=== PATIENT | male | born 1950 | race Caucasian/White ===

== ENCOUNTER → 2017-11-20 06:50 | Outpatient (CLI) | payer MEDICARE, OTHER, SELFPAY ==
--- NOTE | 2017-11-20 07:00 | RAD_ITS ---
STUDY: X-RAY - ORBITS REASON FOR EXAM: Male, 67 years old. This study is being performed as a clearance examination for exclusion of orbital metal, prior to the performance of an MRI examination. TECHNIQUE: 2 view(s) of the orbits were obtained. COMPARISON: None. FINDINGS: Normal bilateral orbits without a metallic orbital foreign body. Normal visualized facial bones. Normal paranasal sinuses. The soft tissue structures are unremarkable. RAD/Orbits for Foreign Body IMPRESSION: No demonstrated metallic orbital foreign body. The patient is cleared for an MRI examination. Electronically Signed: Karthik Donohue DO at 7:20 EDT Tel , Service support ,
--- NOTE | 2017-11-20 07:09 | MRI_ITS ---
STUDY: MRI RIGHT SHOULDER REASON FOR EXAM: Male, 67 years old. Right-sided shoulder pain after falling on ice in July 2017. TECHNIQUE: Standardized fat and water weighted pulse sequences were obtained in all 3 orthogonal planes. COMPARISON: Prior comparable comparison studies are not available for review at this time. FINDINGS: There is a full-thickness tear of the supraspinatus tendon and infraspinatus tendon. There is subscapularis tendinosis with tendon thickening, but without a demonstrated tendon tear. There is teres minor tendinosis with tendon attrition but without a demonstrated supraspinatus tendon tear. There is greater than a 50% fatty muscular atrophy of the supraspinatus muscle (Goutallier Stage IV). There is greater than a 50% fatty muscular atrophy of the infraspinatus muscle (Goutallier Stage IV). There is fatty infiltration (fatty streaks) of the subscapularis muscle (Goutallier Stage I). There is greater than a 50% fatty muscular atrophy of the teres minor muscle (Goutallier Stage IV). There is a small volume joint effusion of the glenohumeral joint. Normal humeral head and visualized proximal humerus. Appears to be disruption of the normal bicipital tendon relationship with the superior glenoid suggesting possible sequela of a type II SLAP lesion. Normal intracapsular long biceps tendon. The labrum otherwise has a grossly normal appearance. Normal capsulo- ligamentous complex. There is decreased acromiohumeral distance consistent with a chronic rotator cuff tear. 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 There is a Type II morphology (curved). There is minimal fluid distention of the subacromial bursa, consistent with mild subacromial-subdeltoid bursitis. Normal axillary space. Normal deltoid muscle. Normal trapezius muscle. MRI/Upper Ext Joint Only(Routine) IMPRESSION: 1. Sequela of supraspinatus and infraspinatus tendon tears with possible type II SLAP lesion. 2. Tendinopathy of subscapularis tendon. 3. Severe degenerative arthropathy of the acromioclavicular joint. 4. Moderately severe atrophy of the supraspinatus, infraspinatus and teres minor muscles. 5. Small joint effusion. Electronically Signed: Ashlee Jaimes MD at 9:33 EDT , Service support ,
== END ==
PROVIDERS: Family Provider Family Medicine; PCP Family Medicine; Visit Provider Family Medicine
DX: S49.91XS Unspecified injury of right shoulder and upper arm, sequela (principal)
CPT/HCPCS: 70030; 73221

== ENCOUNTER → 2017-12-07 07:33 | Outpatient (CLI) | payer MEDICARE, OTHER, SELFPAY ==
--- NOTE | 2017-12-07 07:54 | EKG12_ITS ---
Test Reason : PREOP Blood Pressure : / mmHG Vent. Rate : 068 BPM Atrial Rate : 068 BPM P-R Int : 172 ms QRS Dur : 136 ms QT Int : 454 ms P-R-T Axes : 084 -34 020 degrees QTc Int : 482 ms Normal sinus rhythm Left axis deviation Right bundle branch block Inferior infarct , age undetermined Abnormal ECG No previous ECGs available Confirmed by COLETTE LEDEZMA, JUSTIN ([id number]), video news editor KARTIK IRWIN ([id number]) on 12/09/2017 9:03:05 AM Referred By: Iraida Oconnor Confirmed By:JUSTIN ALVARENGA MD
[2017-12-07 08:32] LABS: Hematocrit 46.2 % (40-54); Hemoglobin 14.9 g/dl (13.0-16.5); Mean Corp Hgb Conc 32.3 g/gl (32-36); Mean Corpuscular Hgb 29.9 pg (27.0-32.0); Mean Corpuscular Volume 92.8 fL (80-94); Mean Platelet Vol. 12.4 fl (6.2-12.0); Platelet Count 178 K/mm3 (150-450); RBC Distribution Width SD 46.8 fl (35.1-43.9); Red Blood Count 4.98 M/mm3 (4.6-6.2); White Blood Count 6.6 K/mm3 (4.4-11.0)
[2017-12-07 08:40] LABS: Scan Indicated on CBC? Y/N NO
[2017-12-07 08:51] LABS: Anion Gap 7 (5-15); BUN 32 mg/dL (7-18); BUN/Creat Ratio 17.7 RATIO (10-20); Calcium,Total 9.1 mg/dL (8.5-10.1); Chloride 107 mmol/L (98-107); Creatinine, Serum 1.81 mg/dL (0.70-1.30); EST Glomerular Filtration Rate 40 mL/min (>60); Est Glom Filt Rate - Afr Amer 48 mL/min (>60); Glucose 251 mg/dL (74-106); Potassium 4.8 mmol/L (3.5-5.1); Sodium Level 137 mmol/L (136-145)
[2017-12-07 09:00] LABS: Hemoglobin A1c 9.6 % (4.2-6.3)
== END ==
PROVIDERS: Family Provider Family Medicine; PCP Family Medicine; Visit Provider Physician Assistant
DX: Z01.810 Encounter for preprocedural cardiovascular examination (principal); Z01.818 Encounter for other preprocedural examination; E11.9 Type 2 diabetes mellitus without complications; I10 Essential (primary) hypertension
CPT/HCPCS: 36415; 80048; 83036; 85027; 93005

== ENCOUNTER → 2018-07-17 10:25 | Outpatient (CLI) | payer MEDICARE, OTHER, SELFPAY ==
--- NOTE | 2018-07-17 10:32 | EKG12_ITS ---
Test Reason : PRE OP Blood Pressure : / mmHG Vent. Rate : 064 BPM Atrial Rate : 064 BPM P-R Int : 176 ms QRS Dur : 140 ms QT Int : 430 ms P-R-T Axes : 030 -44 036 degrees QTc Int : 443 ms Sinus rhythm with Fusion complexes Left axis deviation Right bundle branch block Inferior infarct , age undetermined Abnormal ECG Confirmed by COLETTE LEDEZMA, JUSTIN ([id number]), field map editor KARTIK IRWIN ([id number]) on 07/18/2018 1:17:10 PM Referred By: Jaquan Pate Confirmed By:JUSTIN ALVARENGA MD
[2018-07-17 11:16] LABS: Hemoglobin 16.2 g/dl (13.0-16.5); Mean Corp Hgb Conc 34.5 g/gl (32-36); Mean Corpuscular Hgb 31.3 pg (27.0-32.0); Mean Corpuscular Volume 90.9 fL (80-94); Mean Platelet Vol. 12.3 fl (6.2-12.0); Platelet Count 170 K/mm3 (150-450); RBC Distribution Width CV 14.4 % (11.6-14.6); RBC Distribution Width SD 46.5 fl (35.1-43.9); Red Blood Count 5.17 M/mm3 (4.6-6.2); White Blood Count 8.7 K/mm3 (4.4-11.0)
[2018-07-17 11:17] LABS: Scan Indicated on CBC? Y/N NO
[2018-07-17 11:48] LABS: Anion Gap 10 (5-15); BUN 21 mg/dL (7-18); BUN/Creat Ratio 15.4 RATIO (10-20); Calcium,Total 9.6 mg/dL (8.5-10.1); Chloride 102 mmol/L (98-107); Creatinine, Serum 1.36 mg/dL (0.70-1.30); EST Glomerular Filtration Rate 55 mL/min (>60); Est Glom Filt Rate - Afr Amer 67 mL/min (>60); Glucose 232 mg/dL (74-106); Hemoglobin A1c 8.5 % (4.2-6.3); Potassium 4.1 mmol/L (3.5-5.1); Sodium Level 138 mmol/L (136-145)
== END ==
PROVIDERS: Physician Assistant; Family Provider Family Medicine; PCP Family Medicine; Referring Provider Orthopaedic Surgery; Visit Provider Orthopaedic Surgery
DX: Z01.818 Encounter for other preprocedural examination (principal); Z01.810 Encounter for preprocedural cardiovascular examination; E11.9 Type 2 diabetes mellitus without complications
CPT/HCPCS: 36415; 80048; 83036; 85027; 93005

== ENCOUNTER 2020-10-04 10:15 | Outpatient (RCR) | payer MEDICARE, SELFPAY ==
[2020-10-04] MEDS: COVID-19 VACC, MRNA(PFIZER)/PF 30 MCG/0.3 ML SYRINGE IM (08:31)
[2020-10-25] MEDS: COVID-19 VACC, MRNA(PFIZER)/PF 30 MCG/0.3 ML SYRINGE IM (08:25)
== END 2021-01-03 23:59 ==
LOC: IMMUN 10:15
PROVIDERS: Referring Provider Family Medicine; Visit Provider Family Medicine
DX: Z23 Encounter for immunization (principal)
CPT/HCPCS: 0001A; 0002A; 91300

== ENCOUNTER → 2021-06-26 | Outpatient (CLI) | payer MEDICARE, SELFPAY ==
--- NOTE | 2021-06-26 08:00 | PROSBIL_PTH ---
PATIENT: ABDIFATAH MONTALVO LOC: [facility] U#:[id number] AGE/SX: 71/M ROOM: RE06/26/[address]: Dr. Hector Hammond MD : [id number] BED: DIS: 06/26/2021 SPEC #: [id number] RECD: 06/26/21 16:35 STATUS: MAGALIE REJay #: [id number] DARIAN: 06/26/21 08:[address]: Hector Hammond DEPT: SURGICAL PATHOLOGY RECD BY: Nely Teran ENTERED: 06/27/21 09:53 SP TYPE: PROST BX ADONIS DR: [facility] Tissues: A - PROSTATE RIGHT B - PROSTATE RIGHT C - PROSTATE RIGHT D - PROSTATE LEFT E - PROSTATE LEFT F - PROSTATE LEFT Procedures: PROSTATE BX HEADER OPERATION: Prostate biopsy PRE-OP DIAGNOSIS: R97.20 TISSUE SUBMITTED: A - Right apex, B - Right mid, C - Right base, D - Left apex, E - Left mid, F - Left base MICROSCOPIC DIAGNOSIS A. Right prostate, apex, core biopsy: Prostatic tissue, negative for malignancy. Focal mild chronic inflammation. B. Right prostate, mid, core biopsy: Prostatic tissue, negative for malignancy. Focal atrophy and mild chronic inflammation. C. Right prostate, base, core biopsy: Prostatic tissue, negative for malignancy. Focal atrophy and mild to moderate chronic inflammation. D. Left prostate, apex, core biopsy: Prostatic tissue, negative for malignancy. Focal atrophy and mild chronic inflammation. E. Left prostate, mid, core biopsy: Prostatic tissue, negative for malignancy. Focal atrophy and mild chronic inflammation. F. Left prostate, base, core biopsy: Prostatic tissue, negative for malignancy. Focal atrophy and mild chronic inflammation. SJ:rg 06/28/2021 MICROSCOPIC DESCRIPTION Slides are reviewed. GROSS DESCRIPTION A - Received is one container designated prostate, right apex. The specimen consists of two elongated fragments of light arana-white soft tissue measuring 0.5 and 1.2 cm in length and 0.1 cm in diameter. The specimen is totally submitted in one cassette. B - Received is one container designated prostate, right mid. The specimen consists of three elongated fragments of light arana-white soft tissue measuring 0.5 to 1 cm in length and 0.1 cm in diameter. The specimen is totally submitted in one cassette. C - Received is one container designated prostate, right base. The specimen consists of two elongated fragments of light arana-white soft tissue measuring 0.7 and 1.5 cm in length and 0.1 cm in diameter. The specimen is totally submitted in one cassette. D - Received is one container designated prostate, left apex. The specimen consists of two elongated fragments of light arana-white soft tissue measuring 0.5 and 1.2 cm in length and 0.1 cm in diameter. The specimen is totally submitted in one cassette. E - Received is one container designated prostate, left mid. The specimen consists of two elongated fragments of light arana-white soft tissue each measuring 1 cm in length and 0.1 cm in diameter. The specimen is totally submitted in one cassette. F - Received is one container designated prostate, left base. The specimen consists of two elongated fragments of light arana-white soft tissue measuring 1 and 1.2 cm in length and 0.1 cm in diameter. The specimen is totally submitted in one cassette. / SJ:rg 06/27/2021 TC:3 CPT: G0146
== END | disposition home or self-care (01) ==
PROVIDERS: Referring Provider Urology; Visit Provider Urology
DX: R97.20 Elevated prostate specific antigen [PSA] (principal)
CPT/HCPCS: 88305; G0416

== ENCOUNTER → 2025-01-14 | Outpatient (CLI) | payer MEDICARE, SELFPAY ==
[2025-01-14 12:32] LABS: PSA,Total- Diagnostic 2.51 ng/mL (0.00-4.00)
== END | disposition home or self-care (01) ==
LOC: LAB 10:49
PROVIDERS: Referring Provider Nurse Practitioner; Visit Provider Nurse Practitioner
DX: R97.20 Elevated prostate specific antigen [PSA] (principal)
CPT/HCPCS: 36415; 84153